=== PATIENT | female | born 1950 | race African-American/Black ===

== ENCOUNTER 2017-06-24 13:40 | Emergency (ER) | payer OTHER ==
[2017-06-24] MEDS: KETOROLAC 60 MG INJ IM (18:09)
[2017-06-25] MEDS: OXYCODONE/ACETAMINOPHEN (5/325) TAB PO (00:22)
== END 2017-06-25 00:17 | disposition short-term general hospital (02) ==
LOC: E/R 06-25 00:17
DX: M15.0 Primary generalized (osteo)arthritis (principal); G89.4 Chronic pain syndrome; E66.01 Morbid (severe) obesity due to excess calories
CPT/HCPCS: 72170; 73510; 96372; 99285-25

== ENCOUNTER 2018-10-14 21:17 | Inpatient (IN) | payer MEDICARE, OTHER ==
[2018-10-14] MEDS ORDERED: ONDANSETRON (ODT) 4 MG TAB ODT (22:30)
[2018-10-14] MEDS ORDERED: FUROSEMIDE 20 MG TAB PO (22:30)
[2018-10-14] MEDS ORDERED: traMADol 50 MG TAB PO (22:30)
[2018-10-14] MEDS: METOPROLOL 25 MG TAB PO (22:30)
[2018-10-14] MEDS ORDERED: HYDROCODONE/APAP (5/325) TAB PO (22:30)
[2018-10-14] MEDS ORDERED: PENDING SANTYL ORDER FOR WOUND CARE XX (22:30)
[2018-10-14] MEDS: oxyCODONE 5 MG TAB PO (23:05)
[2018-10-15] MEDS ORDERED: BISACODYL 10 MG SUPP PR (02:00)
[2018-10-15] MEDS ORDERED: ACETAMINOPHEN 325 MG TAB PO (02:00)
[2018-10-15] MEDS ORDERED: LACTULOSE 30ML CUP PO (02:00)
[2018-10-15] MEDS ORDERED: MAGNESIUM HYDROXIDE 30ML CUP PO (02:00)
[2018-10-15] MEDS: oxyCODONE 5 MG TAB PO ×4 (04:58→21:57)
[2018-10-15] MEDS: LORAZEPAM 0.5 MG TAB PO (06:22)
[2018-10-15] MEDS: PANTOPRAZOLE (EC) 40 MG TAB PO (06:22)
[2018-10-15 07:16] LABS: ADD MAN DIFF? NO
[2018-10-15 07:25] LABS: BASOPHIL # 0.1 10^3/ul (0.0-0.1); BASOPHILS % 0.7 % (0.0-2.0); EOSINOPHILS # 0.2 10^3/ul (0.0-0.5); EOSINOPHILS % 1.9 % (0.0-7.0); HEMATOCRIT 23.7 % (37.0-47.0); HEMOGLOBIN 7.8 g/dl (12.0-16.0); LYMPHOCYTES # 1.6 10^3/ul (0.8-2.9); MEAN CORPUSCULAR HEMOGLOBIN 29.8 pg (29.0-33.0); MEAN CORPUSCULAR HGB CONC 32.9 g/dl (32.0-37.0); MEAN CORPUSCULAR VOLUME 90.5 fl (82.0-101.0); MEAN PLATELET VOLUME 9.6 fl (7.4-10.4); MONOCYTE # 0.9 10^3/ul (0.3-0.9); NEUTROPHIL # 5.9 10^3/ul (1.6-7.5); NEUTROPHILS % 67.8 % (39.0-77.0); PLATELET COUNT 381 10^3/UL (140-415); RED BLOOD COUNT 2.62 10^6/ul (4.20-5.40); RED CELL DISTRIBUTION WIDTH 16.3 % (11.5-14.5)
[2018-10-15 07:25] LABS: WHITE BLOOD COUNT 8.6 10^3/ul (4.8-10.8)
[2018-10-15 07:49] LABS: ALANINE AMINOTRANSFERASE 24 IU/L (13-69); ALBUMIN 3.1 g/dl (3.3-4.9); ALKALINE PHOSPHATASE 62 IU/L (42-121); ANION GAP 7 (5-13); ASPARTATE AMINO TRANSFERASE 20 IU/L (15-46); BILIRUBIN,INDIRECT 0.5 mg/dl (0-1.1); BILIRUBIN,TOTAL 0.5 mg/dl (0.2-1.3); BLOOD UREA NITROGEN 3 mg/dl (7-20); CALCIUM 9.6 mg/dl (8.4-10.2); CARBON DIOXIDE 29 mmol/L (21-31); CHLORIDE 105 mmol/L (97-110); CREATININE 0.73 mg/dl (0.44-1.00); Estimated GFR > 60 mL/min (>60); GLUCOSE 68 mg/dl (70-220); POTASSIUM 3.2 mmol/L (3.5-5.1); SODIUM 141 mmol/L (135-144); TOTAL PROTEIN 5.9 g/dl (6.1-8.1)
[2018-10-15] MEDS: METOPROLOL 25 MG TAB PO ×2 (09:00→21:00)
[2018-10-15] MEDS: DOCUSATE SODIUM 100 MG CAP PO ×2 (09:00→21:00)
[2018-10-15] MEDS: ENOXAPARIN 40 MG/0.4 ML SYG SC (09:04)
[2018-10-15] MEDS: FERROUS SULFATE (EC) 325 MG TAB PO ×2 (09:05→21:00)
[2018-10-15] MEDS: BALSAM PERU/CASTOR OIL 60 GM TUBE TOP ×2 (09:05→21:00)
[2018-10-15] MEDS: ZINC OXIDE 20% 30 GM OINT TOP ×2 (09:05→21:00)
[2018-10-15] MEDS: FLUCONAZOLE 200 MG TAB PO (09:07)
[2018-10-15] MEDS: MULTIVITAMINS 30 ML CUP PO (09:26)
[2018-10-15 10:03] LABS: IRON 45 ug/dl (35-150)
[2018-10-15 10:13] LABS: % IRON SATURATION 31 % SAT (22-52); TOTAL IRON BINDING CAPACITY 147 ug/dl (241-421)
[2018-10-15] MEDS: POTASSIUM CHLORIDE (SR) 20 MEQ TAB PO ×2 (11:31→11:36)
[2018-10-15] MEDS: POTASSIUM CHLORIDE 20 MEQ POWDER FOR ORAL SOLN PO (12:38)
[2018-10-15] MEDS: ZOLPIDEM 5 MG TAB PO (20:29)
[2018-10-15] MEDS: ATORVASTATIN 10 MG TAB PO (21:00)
[2018-10-15] MEDS: SENNA TAB PO (21:00)
[2018-10-16] MEDS: oxyCODONE 5 MG TAB PO ×2 (01:57→07:46)
[2018-10-16] MEDS: PANTOPRAZOLE (EC) 40 MG TAB PO (05:38)
[2018-10-16] MEDS: FLUCONAZOLE 200 MG TAB PO (08:45)
[2018-10-16] MEDS: POTASSIUM CHLORIDE 20 MEQ POWDER FOR ORAL SOLN PO (08:45)
[2018-10-16] MEDS: ZINC SULFATE 220 MG CAP PO (09:00)
[2018-10-16] MEDS: FOLIC ACID 1 MG TAB PO (09:00)
[2018-10-16] MEDS: FERROUS SULFATE (EC) 325 MG TAB PO (09:00)
[2018-10-16] MEDS: DOCUSATE SODIUM 100 MG CAP PO (09:00)
[2018-10-16] MEDS: MULTIVITAMINS 30 ML CUP PO (09:00)
[2018-10-16] MEDS: METOPROLOL 25 MG TAB PO (09:00)
[2018-10-16] MEDS: ASCORBIC ACID 500 MG TAB PO (09:00)
[2018-10-16] MEDS: BALSAM PERU/CASTOR OIL 60 GM TUBE TOP (09:00)
[2018-10-16] MEDS: ZINC OXIDE 20% 30 GM OINT TOP (09:00)
[2018-10-16] MEDS: ENOXAPARIN 40 MG/0.4 ML SYG SC (09:00)
== END 2018-10-16 10:30 | disposition home or self-care (01) | DRG 392 ==
LOC: VRC 21:17
DX: K91.2 Postsurgical malabsorption, not elsewhere classified (principal); Z68.42 Body mass index [BMI] 45.0-49.9, adult; B37.49 Other urogenital candidiasis; G72.9 Myopathy, unspecified; R53.81 Other malaise; E66.01 Morbid (severe) obesity due to excess calories; M19.90 Unspecified osteoarthritis, unspecified site; M54.15 Radiculopathy, thoracolumbar region; R60.0 Localized edema; D64.9 Anemia, unspecified; M19.91 Primary osteoarthritis, unspecified site; R19.7 Diarrhea, unspecified; E78.5 Hyperlipidemia, unspecified; L89.899 Pressure ulcer of other site, unspecified stage; F41.9 Anxiety disorder, unspecified; Z74.09 Other reduced mobility; I10 Essential (primary) hypertension; L89.152 Pressure ulcer of sacral region, stage 2; E88.09 Other disorders of plasma-protein metabolism, not elsewhere classified
CPT/HCPCS: 80053; 83540; 85025; 87081; 97162; 97167